=== PATIENT | male | born 1965 | race Caucasian/White ===

== ENCOUNTER 2016-11-01 11:18 | Emergency (ER) | payer BC, OTHER ==
[2016-11-01 11:46] VITALS: BP 166/102
--- NOTE | 2016-11-01 12:18 | RAD ---
INDICATION: Cough and shortness of breath. 3 weeks duration. COMPARISON: June 08, 2014 TECHNIQUE: Dual energy PA and routine lateral views of the chest were obtained. REPORT: Clear lungs and pleural spaces. Negative for pneumothorax. The heart, pulmonary vasculature, and mediastinal contours are unremarkable. Healed LEFT ninth rib fracture posterior lateral. No suspicious focal osseous lesions. IMPRESSION: No evidence for acute intrathoracic disease.
--- NOTE | 2016-11-01 12:30 | UC ---
Respiratory Complaint HPI - HPI Summary HPI Summary: productive cough x 3 weeks + fever, chills, body aches, nasal congestion - History of Current Complaint Chief Complaint: UCRespiratory Stated Complaint: COUGH Time Seen by Provider: 11/01/16 11:22 Hx Obtained From: Patient Onset/Duration: Gradual Onset, Lasting Weeks - 3, Still Present Severity Initially: Moderate Severity Currently: Moderate Character: Cough: Productive - green Aggravating Factors: Exertion, Deep Breaths Alleviating Factors: Nothing Associated Signs And Symptoms: Positive: Dyspnea, Fever, Chills, Pleuritic Chest Pain, URI, Nasal Congestion - Allergies/Home Medications Allergies/Adverse Reactions: Allergies Allergy/AdvReac Type Severity Reaction Status Date / Time Fentanyl AdvReac Intermediate Rash Verified 11/01/16 11:35 Soap at work Allergy Hives Uncoded 11/01/16 11:35 PMH/Surg Hx/FS Hx/Imm Hx Cardiovascular History: Hypertension - Surgical History Surgical History: Yes Surgery Procedure, Year, and Place: Tonsillectomy - Family History Known Family History: Positive: Hypertension - Social History Alcohol Use: None Substance Use Type: None Smoking Status (MU): Current Every Day Smoker Type: Cigarettes Amount Used/How Often: 1/2 PPD Have You Smoked in the Last Year: Yes Household Exposure Type: Cigarettes - Immunization History Most Recent Influenza Vaccination: NONE 2015 Most Recent Tetanus Shot: UTD Most Recent Pneumonia Vaccination: NONE Review of Systems Constitutional: Negative Skin: Negative Eyes: Negative ENT: Negative Respiratory: Cough Cardiovascular: Negative All Other Systems Reviewed And Are Negative: Yes Physical Exam Triage Information Reviewed: Yes Appearance: Well-Appearing, No Pain Distress, Well-Nourished Vital Signs: Initial Vital Signs Temp 98.7 F 11/01/16 11:36 Pulse 81 11/01/16 11:36 Resp 16 11/01/16 11:36 BP 166/102 11/01/16 11:36 Pulse Ox 96 11/01/16 11:36 Vital Signs Reviewed: Yes Eyes: Positive: Conjunctiva Clear ENT: Positive: Normal ENT inspection, Hearing grossly normal, Pharynx normal Neck: Positive: Supple, Nontender, No Lymphadenopathy Respiratory: Positive: Chest non-tender, Wheezing Cardiovascular: Positive: RRR, No Murmur, Pulses Normal Abdominal Exam: Normal Skin Exam: Normal UC Diagnostic Evaluation - Laboratory O2 Sat by Pulse Oximetry: 96 Respiratory Course/Dx - Differential Dx/Diagnosis Provider Diagnoses: bronchitis. HTN Discharge - Discharge Plan Condition: Stable Disposition: HOME Prescriptions: DOXYcycline CAP(*) [DOXYcycline 100MG CAP(*)] 100 mg PO BID #20 cap Patient Education Materials: Acute Bronchitis (ED), Chronic Hypertension (ED) Referrals: Dillan HINSON,Yusef Duncan [Primary Care Provider] - 7 Days Additional Instructions: please follow up with your pcp to restart your blood pressure carla
== END 2016-11-01 12:40 | disposition home or self-care (01) ==
LOC: UCCORT 11:18
DX: J40 Bronchitis, not specified as acute or chronic (principal); I10 Essential (primary) hypertension; F17.210 Nicotine dependence, cigarettes, uncomplicated
CPT/HCPCS: 71020; 99212; G0463

== ENCOUNTER 2018-11-05 10:26 | Emergency (ER) | payer OTHER ==
[2018-11-05 10:38] VITALS: BP 135/91
--- NOTE | 2018-11-05 10:51 | UC ---
Respiratory Complaint HPI - HPI Summary HPI Summary: 53 yo male with cough x 1 week intermittent f/c wheezing hx copd, pt a smoker chest hurts to cough - History of Current Complaint Chief Complaint: UCRespiratory Stated Complaint: COUGH/CHEST,BACK PAIN Time Seen by Provider: 11/05/18 10:42 Hx Obtained From: Patient Onset/Duration: Gradual Onset Timing: Constant Severity Initially: Mild Severity Currently: Moderate Pain Intensity: 7 Pain Scale Used: 0-10 Numeric Character: Cough: Productive Aggravating Factors: Exertion, Deep Breaths Alleviating Factors: Nothing Associated Signs And Symptoms: Positive: Fever, Chills, Wheezing, Hemoptysis - x1 this AM - Allergies/Home Medications Allergies/Adverse Reactions: Allergies Allergy/AdvReac Type Severity Reaction Status Date / Time fentanyl Allergy Rash Verified 11/05/18 10:35 Soap at work Allergy Hives Uncoded 11/05/18 10:35 PMH/Surg Hx/FS Hx/Imm Hx Previously Healthy: Yes Endocrine History: Dyslipidemia Cardiovascular History: Hypertension Respiratory History: COPD, Pneumonia - Surgical History Surgical History: Yes Surgery Procedure, Year, and Place: Tonsillectomy - Family History Known Family History: Positive: Hypertension - Social History Alcohol Use: None Substance Use Type: None Smoking Status (MU): Heavy Every Day Tobacco Smoker Type: Cigarettes Amount Used/How Often: 1/2 PPD Length of Time of Smoking/Using Tobacco: Since Age 14 Have You Smoked in the Last Year: Yes Household Exposure Type: Cigarettes Cessation Counseling: Patient Advised to Stop - Immunization History Most Recent Influenza Vaccination: NONE 2015 Most Recent Tetanus Shot: UTD Most Recent Pneumonia Vaccination: NONE Review of Systems All Other Systems Reviewed And Are Negative: Yes Constitutional: Positive: Fever, Chills, Fatigue Skin: Positive: Negative Eyes: Positive: Negative ENT: Positive: Negative Respiratory: Positive: Cough, Other - some blood in sputum today Cardiovascular: Positive: Negative Gastrointestinal: Positive: Negative Genitourinary: Positive: Negative Motor: Positive: Negative Neurovascular: Positive: Negative Musculoskeletal: Positive: Negative Neurological: Positive: Headache Psychological: Positive: Negative Physical Exam Triage Information Reviewed: Yes Appearance: Well-Appearing, No Pain Distress, Well-Nourished Vital Signs: Initial Vital Signs Temp 98.1 F 11/05/18 10:31 Pulse 99 11/05/18 10:31 Resp 18 11/05/18 10:31 BP 135/91 11/05/18 10:31 Pulse Ox 94 11/05/18 10:31 Vital Signs Reviewed: Yes Eyes: Positive: Conjunctiva Clear ENT: Positive: Normal ENT inspection. Negative: Nasal congestion, Nasal drainage, Trismus, Muffled voice Dental Exam: Normal Neck: Positive: Supple, Nontender, No Lymphadenopathy Respiratory: Positive: No accessory muscle use, Wheezing Cardiovascular: Positive: RRR, No Murmur Musculoskeletal: Positive: ROM Intact, No Edema Neurological: Positive: Alert Psychological Exam: Normal Skin Exam: Normal Diagnostics - Radiology No standard instances Radiology Interpretation Completed By: Radiologist Summary of Radiographic Findings: CXR - stigmata of copd, no infiltrate Re-Evaluation - Re-Evaluation First Eval Re-Evaluation Time: 11:35 Change: Improved - better air movement and decreased wheezing Respiratory Course/Dx - Differential Dx/Diagnosis Provider Diagnosis: Acute bronchitis with bronchospasm Discharge - Sign-Out/Discharge Documenting (check all that apply): Patient Departure All imaging exams completed and their final reports reviewed: Yes - Discharge Plan Condition: Stable Disposition: HOME Prescriptions: Amoxicillin PO (*) [Amoxicillin 875 MG (*)] 875 mg PO BID #14 tab predniSONE [Deltasone 20 MG TAB] 40 mg PO DAILY #10 tab Patient Education Materials: Acute Bronchitis (ED) Referrals: Grace Rapp MD [Primary Care Provider] - 7 Days (recheck in 5-7) Additional Instructions: use your rescue inhaler 2 puffs 4x day for 5 days recheck for new or worsening symptoms - Billing Disposition and Condition Condition: STABLE Disposition: Home
[2018-11-05] MEDS ORDERED: Ipratropium 0.5MG/2.5ML NEB* 0.5 MG/2.5 ML NEB.SOLN INH ONE (10:56)
[2018-11-05] MEDS ORDERED: Albuterol 2.5 MG/3 ML NEB.SOL* (0.083%) INH ONE (10:56)
[2018-11-05] MEDS ORDERED: predniSONE TAB* 20 MG PO ONE (11:41)
== END 2018-11-05 11:53 | disposition home or self-care (01) ==
LOC: UCCORT 10:26
DX: J20.9 Acute bronchitis, unspecified (principal); E78.5 Hyperlipidemia, unspecified; I10 Essential (primary) hypertension; J44.9 Chronic obstructive pulmonary disease, unspecified; F17.210 Nicotine dependence, cigarettes, uncomplicated
CPT/HCPCS: 71046; 99212; G0463; J7512